=== PATIENT | female | born 2005 | race Caucasian/White ===

== ENCOUNTER 2023-03-20 18:34 | Emergency (ER) | payer OTHER, SELFPAY ==
[2023-03-20 18:46] VITALS: BP 152/95; PULSE 88; RESP 14; TEMP 36.8; O2SAT 99
[2023-03-20 19:39] LABS: Basophils Percent Auto 0.4 % (0.2-1.2); Eosinophils Absolute Auto 0.1 K/mm3 (0-0.3); Eosinophils Percent Auto 1.2 % (0-4.4); Hematocrit 37.1 % (37.0-47.0); Hemoglobin 11.6 g/dL (12.0-15.0); Immature Granulocyte Absolute 0.03 K/mm3 (0.00-0.031); Immature Granulocyte Percent A 0.4 % (0-0.5); Lymphocytes Absolute Auto 2.43 K/mm3 (0.9-3.2); Lymphocytes Percent Auto 32.6 % (18.3-44.2); Mean Corpuscular HGB Conc 31.3 g/dl (32-36); Mean Corpuscular Hemoglobin 25.1 pg (26-34); Mean Corpuscular Volume 80.3 fl (80-100); Mean Platelet Volume 11.4 fl (7.4-10.4); Monocytes Absolute Auto 0.6 K/mm3 (0.1-0.6); Monocytes Percent Auto 7.5 % (2.6-8.5); Neutrophils Absolute Auto 4.3 K/mm3 (1.3-6.7); Neutrophils Percent Auto 57.9 % (45.5-73.1); Platelet Count Result 300 k/mm3 (150-375); Red Blood Count 4.62 M/mm3 (4.2-5.4); Red Cell Distribution Width 13.6 % (11.5-14.5); White Blood Count 7.5 K/mm3 (4.5-10.0)
[2023-03-20 19:41] VITALS: BP 154/98; BP 162/95; PULSE 82; PULSE 95
[2023-03-20 19:42] VITALS: BP 157/93; PULSE 83
[2023-03-20 19:46] LABS: Alanine Aminotransferase 29 U/L (6-35); Alkaline Phosphatase 102 U/L (38-126); Anion Gap 9 mmol/L (8-16); Aspartate Amino Transferase 28 U/L (14-36); Bilirubin,Total 0.7 mg/dL (0.2-1.3); Blood Urea Nitrogen 6 mg/dL (7-17); Calcium 8.5 mg/dL (8.4-10.2); Carbon Dioxide 24 mmol/L (22-30); Chloride 104 mmol/L (98-107); Estimated CRCL calculation 182 ml/min; Estimated Glomerular Filt Rate > 60; Glucose 98 mg/dL (65-110); Potassium 3.9 mmol/L (3.4-5.0); Sodium 137 mmol/L (137-145)
--- NOTE | 2023-03-20 20:10 | ECG_ITS ---
Measurements Intervals [place] Rate: 81 P: 17 [place]: 152 QRS: 42 QRSD: 107 T: 6 QT: 370 QTc: 430 Interpretive Statements SINUS RHYTHM EARLY PRECORDIAL R/S TRANSITION NONSPECIFIC T-WAVE ABNORMALITY- INFERIOR LEADS BASELINE ARTIFACT- I, II, III, AVR, AVL BORDERLINE ECG NO PREVIOUS ECG AVAILABLE FOR COMPARISON Electronically Signed On 03-20-2023 21:08:44 CDT by Franklin Heard D.O.
[2023-03-20 20:34] LABS: Appearance Urine Clear (Clear); Bilirubin Urine Negative (Negative); Blood Urine Negative (Negative); Color Urine Yellow (Yellow); Glucose Urine UA Negative (Negative); Ketones Urine Negative (Negative); Leukocyte Esterase Ur Negative LEU/UL (Negative); Nitrate Urine Negative (Negative); Protein Urine Negative (Negative); Specific Grav Ur 1.005 (1.001-1.035); Urobilinogen Urine 0.2 mg/dL (<2.0)
[2023-03-20 20:39] LABS: Add Urine Microscopic? NO
--- NOTE | 2023-03-20 20:50 | ED.GENADULT ---
HPI - General Adult General Chief complaint: Nausea/Vomiting/Diarrhea Time Seen by Provider: 03/20/23 19:02 Source: patient Mode of arrival: ambulatory Limitations: no limitations History of Present Illness HPI narrative: 18-year-old otherwise healthy here with complaints of sudden onset of lightheadedness, dizziness associated with diarrhea while [facility] was [facility]. She also stated that she was nauseated. Patient mentions that her blood pressure was elevated. She denies any headache, chest pain or shortness of breath. She states her nausea is much improved with Zofran. Onset (ago): hour(s) (2) Severity: moderate Pain Consistency: now resolved Exacerbating factors: none Associated symptoms: denies other symptoms Treatments prior to arrival: none Related Data Allergies Allergy/AdvReac Type Severity Reaction Status Date / Time amoxicillin [From Augmentin] Allergy Rash Verified 03/20/23 18:50 clavulanic acid Allergy Rash Verified 03/20/23 18:50 [From Augmentin] Penicillins Allergy Rash Verified 03/20/23 18:50 clarithromycin [From Biaxin] AdvReac Nausea Verified 03/20/23 18:50 Review of Systems Review of Systems: All systems reviewed & are unremarkable except as noted in HPI and below Constitutional: Constitutional: Reports no additional constitutional complaints Eyes: Eyes: Reports no additional eye complaints ENT: Reports system reviewed and no additional complaints, except as documented Cardiovascular: Cardiovascular: Reports no additional cardiovascular complaints Respiratory: Respiratory: Reports no additional respiratory complaints Gastrointestinal: Gastrointestinal: Reports as per HPI Musculoskeletal: Musculoskeletal: Reports no additional musculoskeletal complaints Neurologic: Reports system reviewed and no additional complaints, except as documented Exam Narrative: GENERAL: Well-appearing, well-nourished, and in no acute distress. HEAD: Normocephalic, atraumatic. EYES: PERRLA and EOMI. NECK: Supple. CHEST: Clear to auscultation. No respiratory distress. HEART: Regular rate and rhythm. No murmur heard. Normal peripheral pulses. ABDOMEN: Soft, nontender, nondistended, normal active bowel sounds. EXTREMITIES: Normal range of motion. No edema. SKIN: Warm, dry, no rash. NEURO: No focal deficits. Alert and oriented x3. PSYCH: Normal mood and affect. Course Course Emergency Course: Patient remained asymptomatic while she is here in the ER. Informed her and her mother about her lab work, EKG findings. Her blood pressure is still elevated but this is the first time that has been elevated I recommended her to follow-up with her primary doctor or on-call doctor. Vital Signs Vital signs: Vital Signs Temperature 36.8 C 03/20/23 18:46 Pulse Rate 88 03/20/23 18:46 Respiratory Rate 14 03/20/23 18:46 Blood Pressure 152/95 H 03/20/23 18:46 Pulse Oximetry 99 03/20/23 18:46 Oxygen Delivery Room Air 03/20/23 18:46 Temperature 36.8 C 03/20/23 18:46 Pulse Rate 83 03/20/23 19:42 Respiratory Rate 14 03/20/23 18:46 Blood Pressure 157/93 H 03/20/23 19:42 Pulse Oximetry 99 03/20/23 18:46 Oxygen Delivery Room Air 03/20/23 18:46 Medical Decision Making Vital Signs Vital Signs: Vital Signs Temperature 36.8 C 03/20/23 18:46 Pulse Rate 88 03/20/23 18:46 Respiratory Rate 14 03/20/23 18:46 Blood Pressure 152/95 H 03/20/23 18:46 Pulse Oximetry 99 03/20/23 18:46 Oxygen Delivery Room Air 03/20/23 18:46 Temperature 36.8 C 03/20/23 18:46 Pulse Rate 83 03/20/23 19:42 Respiratory Rate 14 03/20/23 18:46 Blood Pressure 157/93 H 03/20/23 19:42 Pulse Oximetry 99 03/20/23 18:46 Oxygen Delivery Room Air 03/20/23 18:46 Lab Data 03/20/23 19:24 03/20/23 19:24 Labs: Lab Results 03/20/23 Range/Units 19:24 WBC 7.5 (4.5-10.0) K/mm3 RBC 4.62 (4.2-5.4) M/mm3 Hgb 11.6 L (12
[2023-03-20 20:53] VITALS: BP 156/99; PULSE 84; RESP 18; O2SAT 100
== END 2023-03-20 21:22 | disposition home or self-care (01) ==
PROVIDERS: Emergency Provider Family Medicine
DX: I10 Essential (primary) hypertension (principal); K52.9 Noninfective gastroenteritis and colitis, unspecified; R94.31 Abnormal electrocardiogram [ECG] [EKG]
CPT/HCPCS: 36415; 80053; 81003; 85025; 93005; 99283